=== PATIENT | female | born 1985 | race Caucasian/White ===

== ENCOUNTER 2025-07-21 06:31 | Day surgery (SDC) | payer OTHER, SELFPAY | END 2025-07-21 09:47 | disposition home or self-care (01) | LOC: GI 06:31 | PROVIDERS: ATTENDING PHYSICIAN Internal Medicine Gastroenterology | DX: Z12.11 Encounter for screening for malignant neoplasm of colon (principal); D12.0 Benign neoplasm of cecum; K63.5 Polyp of colon; Z80.0 Family history of malignant neoplasm of digestive organs; Z86.0101 Personal history of adenomatous and serrated colon polyps | CPT/HCPCS: 45385; 88305 ==